=== PATIENT | female | born 1960 | race Caucasian/White ===

== ENCOUNTER 2016-08-19 09:52 | Emergency (ER) | payer OTHER ==
[2016-08-19 10:02] VITALS: TEMP 98; BMI 29.2
[2016-08-19] MEDS ORDERED: IBUPROFEN 600 MG TABLET (FP) PO ONE ×2 (11:11→11:25)
--- NOTE | 2016-08-19 11:11 | PDOC ---
History of Present Illness - General History Source: Patient Exam Limitations: No Limitations - History of Present Illness Initial Comments: 08/19/16 11:20 The patient is a 55-year-old woman, accompanied by her grandson, with a significant past medical history of anxiety, diabetes mellitus and gastroesophageal reflux disease who presents to the emergency department for back pain. No trauma. Patient reports that, two days ago, she bent over to hand picker an object and immediately felt lower bilateral back pain, that has remained intermittent and non-radiating since onset. She does report however, that her pain as worsened, as it was initially only exacerbated with minimal musculoskeletal maneuvers but now her pain is present when lying supine. She denies any fever, chills, sick contacts, changes in strength or sensation to her extremities. She also reports experiencing lightheadedness for the past couple of weeks, ever since she cam back form [facility] in early July. She denies nausea, vomiting, abdominal pain, chest pain, cough, shortness of breath, headache. Allergies: Shellfish Past Surgical History: None reported. Social History: No tobacco, EtOH and recreational drug use. Primary Care Physician: Dr. Kartik Juan <Katalina Fontenot - Last Filed: 08/19/16 13:09> <Marilee Crystal - Last Filed: 08/19/16 22:07> - General Chief Complaint: Lightheaded Stated Complaint: BACK PAIN Time Seen by Provider: 08/19/16 10:24 Past History <Katalina Fontenot - Last Filed: 08/19/16 13:09> - Past Medical History Diabetes: Yes GI Disorders: Yes (ACID REFLUX) Psychiatric Problems: Yes (ANXIETY) - Psycho/Social/Smoking Cessation Hx Anxiety: No Suicidal Ideation: No Smoking History: Never smoked Hx Alcohol Use: No Drug/Substance Use Hx: No Substance Use Type: None <Marilee Crystal - Last Filed: 08/19/16 22:07> - Past Medical History Allergies/Adverse Reactions: Allergies Allergy/AdvReac Type Severity Reaction Status Date / Time shellfish derived Allergy Rash Verified 08/19/16 10:02 Home Medications: Ambulatory Orders Ibuprofen [Motrin -] 600 mg PO TID PRN #21 tablet 08/19/16 Metaxalone [Skelaxin] 800 mg PO TID PRN #21 tablet 08/19/16 Review of Systems - Review of Systems Able to Perform ROS?: Yes Comments:: 08/19/16 11:20 GENERAL/CONSTITUTIONAL: No fever or chills. No weakness. HEAD, EYES, EARS, NOSE AND THROAT: No change in vision. No ear pain or discharge. No sore throat. CARDIOVASCULAR: No chest pain or shortness of breath. RESPIRATORY: No cough, wheezing, or hemoptysis. GASTROINTESTINAL: No nausea, vomiting, diarrhea or constipation. GENITOURINARY: No dysuria, frequency, or change in urination. MUSCULOSKELETAL: Yes: Back pain. No joint or muscle swelling or pain. No neck pain. SKIN: No rash NEUROLOGIC: Yes: Lightheadedness. No headache, vertigo, loss of consciousness, or change in strength/sensation. ENDOCRINE: No increased thirst. No abnormal weight change. HEMATOLOGIC/LYMPHATIC: No anemia, easy bleeding, or history of blood clots. ALLERGIC/IMMUNOLOGIC: No hives or skin allergy. <Katalina Fontenot - Last Filed: 08/19/16 13:09> *Physical Exam - Vital Signs Last Vital Signs Temp Pulse Resp BP Pulse Ox 98.0 F 73 20 140/94 99 08/19/16 09:59 08/19/16 09:59 08/19/16 09:59 08/19/16 09:59 08/19/16 09:59 <Katalina Fontenot - Last Filed: 08/19/16 13:09> - Vital Signs Last Vital Signs Temp Pulse Resp BP Pulse Ox 98.0 F 73 20 140/94 99 08/19/16 09:59 08/19/16 09:59 08/19/16 09:59 08/19/16 09:59 08/19/16 09:59 - Physical Exam Comments: GENERAL: Awake, alert, and fully oriented, appears uncomfortable. HEAD: No signs of trauma EYES: PERRLA, EOMI, sclera anicteric, conjunctiva clear ENT: Auricles normal inspection, hearing grossly normal, nares patent, oropharynx clear without exudates. Moist mucosa NECK: Normal ROM, supple, no lymphadenopathy, JVD, or masses LUNGS: Breath sounds equal, clear to auscultation bilaterally. No wheezes, and no crackles HEART: Regular rate and rhythm, normal S1 and S2, no murmurs, rubs or gallops ABDOMEN: Soft, nontender, normoactive bowel sounds. No guarding, no rebound. No masses. No CVAT. EXTREMITIES: Normal range of motion, no edema. No clubbing or cyanosis. No cords, erythema, or tenderness NEUROLOGICAL: Cranial nerves II through XII grossly intact. Normal speech, normal gait. Strength and sensation intact. SKIN: Warm, Dry, normal turgor, no rashes or lesions noted. SPINE: No midline tenderness. +Soft tissue tenderness to B/L lower lumbar paraspinal regions. <Marilee Crystal - Last Filed: 08/19/16 22:07> Medical Decision Making - Medical Decision Making Pt given ibuprofen with some relief of symptoms. UA wnl. No signs of kidney stone, pyelo, and no midline tenderness to the spine. Muscle relaxer in addition to the NSAID would be preferable for her symptoms, however, she has her grandson with her at present, and cannot take anything that could potentially cause drowsiness. Will give rx for skelaxin and ibuprofen. Stable for DC home. <Marilee Crystal - Last Filed: 08/19/16 22:07> *DC/Admit/Observation/Transfer - Attestations Scribe Attestion: 08/19/16 11:20 Documentation prepared by Katalina Fontenot, acting as senior medical writer for Marilee Crystal MD. <Katalina Fontenot - Last Filed: 08/19/16 13:09> - Discharge Dispostion Admit: No <Marilee Crystal - Last Filed: 08/19/16 22:07> Diagnosis at time of Disposition: Low back pain Qualifiers: Chronicity: acute Back pain laterality: bilateral Sciatica presence: without sciatica Qualified Code(s): M54.5 - Low back pain - Discharge Dispostion Disposition: HOME Condition at time of disposition: Stable - Prescriptions Prescriptions: Ibuprofen [Motrin -] 600 mg PO TID PRN #21 tablet PRN Reason: Pain Metaxalone [Skelaxin] 800 mg PO TID PRN #21 tablet PRN Reason: Muscle Spasms - Referrals Referrals: Kartik Juan [Primary Care Provider] - - Patient Instructions Printed Discharge Instructions: DI for Low Back Pain
[2016-08-19 11:24] LABS: URINE APPEARANCE CLEAR; URINE BILIRUBIN NEGATIVE (NEGATIVE); URINE BLOOD NEGATIVE (NEGATIVE); URINE COLOR LTYELLOW; URINE GLUCOSE (UA) NEGATIVE (NEGATIVE); URINE KETONE NEGATIVE (NEGATIVE); URINE LEUK ESTERASE NEGATIVE (NEGATIVE); URINE NITRITE NEGATIVE (NEGATIVE); URINE PROTEIN NEGATIVE (NEGATIVE); URINE UROBILINOGEN NEGATIVE E.U./dl (0.2-1.0)
[2016-08-19 12:03] VITALS: BP 136/60; PULSE 89
== END 2016-08-19 12:03 | disposition home or self-care (01) ==
LOC: JER 09:52
DX: M54.5 Low back pain (principal); F41.9 Anxiety disorder, unspecified; E11.9 Type 2 diabetes mellitus without complications; K21.9 Gastro-esophageal reflux disease without esophagitis
CPT/HCPCS: 81003; 99282-25

== ENCOUNTER 2016-11-09 23:01 | Emergency (ER) | payer OTHER ==
[2016-11-09 23:34] VITALS: BP 134/77; PULSE 81; TEMP 97.9; BMI 30.2
[2016-11-10] MEDS ORDERED: IBUPROFEN 400 MG TABLET (FP) PO ONE ×2 (00:49→00:51)
--- NOTE | 2016-11-10 01:51 | PDOC ---
History of Present Illness - General Chief Complaint: Injury Stated Complaint: HAND INJURY Time Seen by Provider: 11/10/16 00:34 - History of Present Illness Initial Comments: 11/10/16 01:45 56 yo F, injured wrist while trying to reach for a heavy object "like a book", the object fell and hyperextended R wrist. Patient with edema to R wrist. limited ROM secondary to pain. Last took ibuprofen 200 mg at 9 pm. 400 mg po ibuprofen x-ray x-ray neg wrist splint f/u with ortho Past History - Past Medical History Allergies/Adverse Reactions: Allergies Allergy/AdvReac Type Severity Reaction Status Date / Time shellfish derived Allergy Rash Verified 11/09/16 23:31 Home Medications: Ambulatory Orders Escitalopram Oxalate [Lexapro -] 10 mg PO ASDIR 11/10/16 Ibuprofen 600 mg PO TID #21 tablet 11/10/16 Metformin HCl 500 mg PO ASDIR 11/10/16 Diabetes: Yes GI Disorders: Yes (ACID REFLUX) Psychiatric Problems: Yes (ANXIETY) - Suicide/Smoking/Psychosocial Hx Smoking History: Never smoked Have you smoked in the past 12 months: No Information on smoking cessation initiated: No Hx Alcohol Use: No Drug/Substance Use Hx: No Substance Use Type: None *Physical Exam - Vital Signs Last Vital Signs Temp Pulse Resp BP Pulse Ox 97.9 F 81 18 134/77 97 11/09/16 23:32 11/09/16 23:32 11/09/16 23:32 11/09/16 23:32 11/09/16 23:32 ED Treatment Course - RADIOLOGY Radiology Studies Ordered: Category Date Time Status WRIST W/HAND-RIGHT* [RAD] Stat Radiology 11/10/16 00:43 Taken - Medications Given in the ED: ED Medications Discontinued Medications Generic Name Dose Route Start Last Admin Trade Name Freq PRN Reason Stop Dose Admin Ibuprofen 400 mg 11/10/16 00:49 11/10/16 00:52 Motrin - PO 11/10/16 00:50 400 mg ONCE ONE Administration *DC/Admit/Observation/Transfer Diagnosis at time of Disposition: Wrist sprain Qualifiers: Encounter type: initial encounter Laterality: right Qualified Code(s): S63.501A - Unspecified sprain of right wrist, initial encounter - Discharge Dispostion Disposition: HOME Condition at time of disposition: Stable Admit: No - Prescriptions Prescriptions: Ibuprofen 600 mg PO TID #21 tablet - Referrals Referrals: Kartik Juan [Primary Care Provider] - Rc Clifford MD [Staff Physician] - - Patient Instructions Additional Instructions: Please take medications as prescribed and follow up with orthopedics by the end of the week. If you develop any new or worsening pain, please return to the ER.
== END 2016-11-10 02:04 | disposition home or self-care (01) ==
LOC: JERFT 23:01
PROC: 2W3CX1Z Immobilization of Right Lower Arm using Splint (ICD-10-PCS; principal; 2016-11-09)
DX: S63.501A Unspecified sprain of right wrist, initial encounter (principal); W20.8XXA Other cause of strike by thrown, projected or falling object, initial encounter; Y93.89 Activity, other specified; Y92.9 Unspecified place or not applicable; F41.9 Anxiety disorder, unspecified; K21.9 Gastro-esophageal reflux disease without esophagitis
CPT/HCPCS: 73110-TC-RT; 73130-TC-RT; 99281-25

== ENCOUNTER 2023-06-15 09:13 | Emergency (ER) | payer OTHER ==
[2023-06-15 09:25] VITALS: BP 118/74; PULSE 83; RESP 18; TEMP 97.7; BMI 30.2
[2023-06-15] MEDS ORDERED: ACETAMINOPHEN 325 MG TABLET (FP) ONE (11:18)
[2023-06-15] MEDS ORDERED: IBUPROFEN 400 MG TABLET (FP) PO ONE (11:19)
[2023-06-15] MEDS: ACETAMINOPHEN 325 MG TABLET (FP) PO ONE (11:21)
[2023-06-15] MEDS: IBUPROFEN 400 MG TABLET (FP) PO ONE (11:21)
== END 2023-06-15 13:07 | disposition home or self-care (01) ==
LOC: JERFT 09:13
DX: M25.562 Pain in left knee (principal)
CPT/HCPCS: 73564-TC-LT-FY; 99283-25